=== PATIENT | female | born 1980 | race Two or more races ===

== ENCOUNTER → 2017-02-25 | Emergency (ER) | payer MEDICAID | END | disposition left against medical advice (07) | LOC: ER 21:11 | DX: M79.643 Pain in unspecified hand (principal); Z53.21 Procedure and treatment not carried out due to patient leaving prior to being seen by health care provider ==

== ENCOUNTER 2018-05-21 17:55 | Emergency (ER) | payer MEDICAID ==
[~2018-05-21] VITALS: Ht 154.9 cm; Wt 74.8 kg
[2018-05-21] MEDS ORDERED: HYDROcodone-ACET 10/325MG TAB PO ONE ×2 (19:30→19:45)
[2018-05-21] MEDS ORDERED: BACLOFEN 10 MG TAB PO ONE (19:30)
[2018-05-21 20:14] VITALS: BP 152/87
== END 2018-05-21 23:58 | disposition home or self-care (01) ==
LOC: ER 18:02
DX: S20.219A Contusion of unspecified front wall of thorax, initial encounter (principal); M62.838 Other muscle spasm; I10 Essential (primary) hypertension; Z88.6 Allergy status to analgesic agent; Z88.4 Allergy status to anesthetic agent; Z98.51 Tubal ligation status; V49.49XA Driver injured in collision with other motor vehicles in traffic accident, initial encounter; Y93.89 Activity, other specified; Y99.8 Other external cause status; Y92.488 Other paved roadways as the place of occurrence of the external cause
CPT/HCPCS: 71046; 93005

== ENCOUNTER 2019-03-22 05:29 | Emergency (ER) | payer MEDICAID ==
[~2019-03-22] VITALS: Ht 152.4 cm; Wt 71.7 kg
[2019-03-22 05:41] VITALS: BP 143/92
== END 2019-03-22 09:29 | disposition home or self-care (01) ==
LOC: ER 05:29
DX: N39.0 Urinary tract infection, site not specified (principal); B37.3 Candidiasis of vulva and vagina; I10 Essential (primary) hypertension; Z88.5 Allergy status to narcotic agent; Z88.8 Allergy status to other drugs, medicaments and biological substances
CPT/HCPCS: 81002

== ENCOUNTER 2022-01-20 02:03 | Inpatient (IN) | payer MEDICAID ==
[~2022-01-20] VITALS: Ht 304.8 cm; Wt 76.9 kg
[2022-01-20 03:17] LABS: Basophils # (auto) 0.2 10 ^3/uL (0-0.2); Basophils % (auto) 1.1 % (0.0-2.0); Eosinophils # (auto) 0.5 10 ^3/uL (0-0.8); Eosinophils % (auto) 3.3 % (0.0-7.0); Hematocrit 40.1 % (36.0-46.0); Hemoglobin 13.7 g/dL (12.2-16.2); Lymphocytes # (auto) 3.3 10 ^3/uL (0.4-5.4); Lymphocytes % (auto) 21.6 % (10.0-50.0); Mean Corpuscular Hgb Conc. 34.1 g/dL (32.0-36.0); Mean Corpuscular Volume 85.3 fL (80.0-100.0); Monocytes # (auto) 1.2 10 ^3/uL (0-1.3); Monocytes % (auto) 7.6 % (0.0-12.0); Neutrophils # (auto) 10.2 10 ^3/uL (1.6-8.6); Neutrophils % (auto) 66.4 % (37.0-80.0); Nucleated Red Blood Cells % 0.2 %; Red Blood Cells 4.71 10^6/uL (4.0-5.20); Red Cell Distribution Width 14.2 % (11.8-14.3); White Blood Cell 15.3 10^3/uL (4.4-10.8)
[2022-01-20] MEDS ORDERED: IOHEXOL 350 MG/ML 100ML IJ ONE (03:30)
[2022-01-20 03:36] LABS: Albumin 3.3 g/dL (3.4-5.0); BUN/Creatinine Ratio 16.7; Calcium 8.1 mg/dL (8.5-10.1); Potassium 3.5 mmol/L (3.5-5.1)
[2022-01-20 03:39] LABS: Bilirubin, Total 0.9 mg/dL (0.2-1.0); Total Protein 7.2 g/dL (6.4-8.2)
[2022-01-20] MEDS ORDERED: ASPirin 325 MG TAB PO ONE (06:00)
[2022-01-20] MEDS ORDERED: NITROGLYCERIN 0.4 MG SL TAB SL ONE (06:15)
[2022-01-20] MEDS ORDERED: ONDANSETRON HCL 4 MG/2 ML VIAL IV PRN (09:15)
[2022-01-20] MEDS ORDERED: NITROGLYCERIN 0.4 MG SL TAB SL PRN (09:15)
[2022-01-20] MEDS ORDERED: HYDROcodone-ACET 5/325MG TAB PO PRN (09:15)
[2022-01-20] MEDS ORDERED: MORPHINE SULFATE INJ 2 MG/ml SYRG IV PRN ×2 (09:15)
[2022-01-20] MEDS ORDERED: DOCUSATE SOD 100 MG CAP PO PRN (09:15)
[2022-01-20] MEDS: SODIUM CHLOR 0.9% PF (SALINE LOCK) 10ML VIAL/SYR IV SCH ×2 (14:25→22:10)
[2022-01-20 21:46] VITALS: BP 140/98
[2022-01-20 22:00] VITALS: BP 140/98
[2022-01-20 22:03] VITALS: BP 140/98
[2022-01-21] MEDS ORDERED: AMLO-489 PO (03:21)
[2022-01-21 05:00] VITALS: BP 115/75
[2022-01-21] MEDS: SODIUM CHLOR 0.9% PF (SALINE LOCK) 10ML VIAL/SYR IV SCH ×2 (07:10→14:14)
[2022-01-21 08:42] VITALS: BP 124/78
[2022-01-21 09:50] LABS: Urine Bacteria FEW /hpf (None Seen); Urine Blood Negative /uL (Negative); Urine Mucus FEW (None Seen); Urine WBC 28 /hpf (0 - 5)
[2022-01-21 12:52] VITALS: BP 127/87
[2022-01-21 16:45] VITALS: BP 122/73
[2022-01-21 16:50] VITALS: BP 122/73
== END 2022-01-21 17:20 | disposition home or self-care (01) | DRG 203 ==
LOC: ER 02:10 → TELE 09:06 → TELE-WESTW 21:26
PROVIDERS: ADMIT Internal Medicine; ATTEND Student in an Organized Health Care Education/Training Program
DX: R07.89 Other chest pain (principal); M32.9 Systemic lupus erythematosus, unspecified; I10 Essential (primary) hypertension; M54.9 Dorsalgia, unspecified; Z20.822 Contact with and (suspected) exposure to COVID-19; Z86.711 Personal history of pulmonary embolism; Z88.1 Allergy status to other antibiotic agents; Z88.5 Allergy status to narcotic agent
CPT/HCPCS: 36415; 71275; 80053; 81001; 83735; 84484; 85025; 85379; 87426; 93005; 96374; G0378

== ENCOUNTER → 2025-02-03 | Outpatient (CLI) | payer MEDICAID ==
[~2025-02-03] MED LIST: AMLO1TAB22 PO; APIX5TAB OR; CIPR-173 PO; CLIN1CAP70 PO; LEVO500T31 PO
[2025-02-03 11:40] LABS: Hematocrit 45.4 % (36.0-46.0); Hemoglobin 15.3 g/dL (12.2-16.2); Mean Corpuscular Hemoglobin 29.1 pg (28.0-32.0); Mean Corpuscular Volume 86.2 fL (80.0-100.0); Nucleated Red Blood Cells % 0.0 %
[2025-02-03 11:44] LABS: INR 0.97 (0.9-1.15); Partial Thromboplastin Time 27.4 SEC (24.5-34.5); Prothrombin Time 10.3 sec (9.3-11.8)
[2025-02-03 11:55] LABS: Urine Protein, UAD TRACE (Negative)
[2025-02-03 12:12] LABS: Alanine Aminotransferase 18 U/L (7-40); Albumin 4.4 g/dL (3.2-4.8); Alkaline Phosphatase 96 U/L (46-116); Anion Gap 11 (5-15); BUN/Creatinine Ratio 9.2 (10.0-20.0); Calcium 8.8 mg/dL (8.7-10.4); Carbon Dioxide 27 mmol/L (20-31); Chloride 103 mmol/L (98-107); Glucose 93 mg/dL (74-106); Potassium 3.7 mmol/L (3.5-5.1); Sodium 141 mmol/L (136-145); Total Protein 7.8 g/dL (5.7-8.2)
[2025-02-03 12:13] LABS: Bilirubin, Total 1.1 mg/dL (0.2-1.0); Blood Urea Nitrogen 7 mg/dL (9-23)
== END | disposition home or self-care (01) ==
LOC: LAB 11:07 → EDSTATUS 02-25 13:16
PROVIDERS: ATTEND Internal Medicine Gastroenterology
DX: Z01.812 Encounter for preprocedural laboratory examination (principal); K21.9 Gastro-esophageal reflux disease without esophagitis
CPT/HCPCS: 36415; 80053; 81001; 81025; 85025; 85610; 85730